=== PATIENT | female | born 1945 | race Caucasian/White ===

== ENCOUNTER → 2018-09-21 12:21 | Outpatient (CLI) | payer MEDICARE, OTHER ==
[2015-10-24 11:06] VITALS: BMI 29.3
[~2018-09-21 12:21] MED LIST: ALBUTEROL SULF8.5 GM INH; BAYER CHEWABLE81 MG PO; BETAPACE 80 MG80 MG PO; BUSPAR5 MG PO; COZAAR100 MG PO; GLUCOPHAGE1000 MG PO; HYDRALAZINE HCL50 MG PO; HYDROCODON-ACE1 EAC7 PO; HYTRIN5 MG PO; KLONOPIN0.5 MG PO; LASIX40 MG PO; LEVEMIR FL100 UNIT/1 SC; LEVEMIR IN100 UNITS/ SC; LUTERA1 TAB PO; MULTI-DAY VITAM1 TAB PO; MULTIPLE VITAMI1 TA1 PO; NEURONTIN 300300 MG PO; NORVASC5 MG PO; PLAVIX75 MG PO; PRAVACHOL40 MG PO; PROTONIX40 MG PO; TERAZOSIN HCL2 MG PO; ULTRAM50 MG PO; VITAMIN B-122500 MCG PO; VOLTAREN100 GM TOPICAL; ZANAFLEX4 MG PO; ZANTAC150 MG PO; ZOLOFT50 MG PO
--- NOTE | 2018-09-21 13:39 | NUR ---
CT WITHOUT CONTRAST ONLY BECAUSE PATIENT COULDN'T TOLERATE BEING ON HER STOMACH FOR MYELOGRAM INJECTION. MARY WITH DR. STEVENSON NOTIFIED AND SENT NEW ORDER FOR CT
== END | disposition home or self-care (01) ==
LOC: D.RAD 12:21
PROVIDERS: ATTEND Orthopaedic Surgery
DX: M54.16 Radiculopathy, lumbar region (principal)

== ENCOUNTER 2018-09-24 16:31 | Observation (INO) | payer MEDICARE, OTHER ==
[~2018-09-24] VITALS: Ht 157.5 cm; Wt 70.5 kg
[2018-09-24] VITALS (8 sets, daily range): BP systolic 167–211; BP diastolic 65–82; Ht 157.5 cm; Wt 70.5 kg
[~2018-09-24 16:31] MED LIST changes: -ALBUTEROL SULF8.5 GM INH; -BUSPAR5 MG PO; -HYDROCODON-ACE1 EAC7 PO; -HYTRIN5 MG PO; -LEVEMIR IN100 UNITS/ SC; -MULTI-DAY VITAM1 TAB PO; -NORVASC5 MG PO; -ULTRAM50 MG PO; -VOLTAREN100 GM TOPICAL; -ZANAFLEX4 MG PO
[2018-09-24] MEDS ORDERED: ULTRAM50 MG PO (16:49)
[2018-09-24] MEDS ORDERED: HYDROCODON-ACE1 EAC7 PO (16:50)
[2018-09-24] MEDS ORDERED: LEVEMIR IN100 UNITS/ SC (16:51)
[2018-09-24] MEDS ORDERED: HYTRIN5 MG PO (16:54)
[2018-09-24] MEDS ORDERED: NORVASC5 MG PO (16:55)
[2018-09-24] MEDS ORDERED: BUSPAR5 MG PO (16:55)
[2018-09-24] MEDS ORDERED: MULTI-DAY VITAM1 TAB PO (16:56)
[2018-09-24 17:34] LABS: BASOPHILS 0.2 % (0-2); EOSINOPHILS 1.1 % (0-7); HEMOGLOBIN 13.5 g/dL (12-16); IMMATURE GRANULOCYTES 0.2 % (0-5); LYMPHOCYTES 16.5 % (15-50); MCH 29.8 pg (26.0-34.0); MCHC 34.6 g/dL (31.0-37.0); MCV 86.1 fL (80.0-100.0); MEAN PLATELET VOLUME 10.5 fL (7.4-10.4); MONOCYTES 6.8 % (2-11); NEUTROPHILS 75.2 % (40-80); PLATELET COUNT 151 10x3/uL (130-400); RBC 4.53 10x6/uL (4.00-5.40); RDW 13.6 % (11.5-14.5); WBC 5.6 10x3/uL (4.8-10.8)
[2018-09-24 17:57] LABS: APTT 35.1 SECONDS (22.8-39.4); INR 1.05 (0.85-1.17); PROTIME 13.2 SECONDS (11.6-15.0)
[2018-09-24 18:29] LABS: ALBUMIN 3.5 g/dL (3.4-5.0); ALKALINE PHOSPHATASE 53 U/L (46-116); ALT (SGPT) 27 U/L (10-68); CALCIUM 8.7 mg/dL (8.5-10.1); CARBON DIOXIDE 24.2 mmol/L (21.0-32.0); CHLORIDE - SERUM 107 mmol/L (98-107); POTASSIUM - SERUM 3.8 mmol/L (3.5-5.1); PROTEIN - SERUM 6.9 g/dL (6.4-8.2); SODIUM 142 mmol/L (136-145); UREA NITROGEN 22 mg/dL (7-18); eGFR NON AFRICAN AMERICAN 57 mL/min (90-120)
[2018-09-24 18:40] LABS: CKMB 1.4 U/L (0.0-3.6); CREATINE KINASE 47 UL (21-215); MAGNESIUM - SERUM 1.9 mg/dL (1.8-2.4)
[2018-09-24 18:43] LABS: CALC OSMOLALITY 288 mosm/kg (275-300); GLUCOSE 144 mg/dL (74-106); TROPONIN-I < 0.017 ng/mL (0.000-0.060)
--- NOTE | 2018-09-24 22:18 | NUR ---
PT ARRIVED VIA W/C FROM ER WITH FAMILY AT BEDSIDE. NO DISTRESS NOTED.
[2018-09-24] MEDS ORDERED: ZANAFLEX4 MG PO (22:44)
[2018-09-24] MEDS ORDERED: VOLTAREN100 GM TOPICAL (22:45)
--- NOTE | 2018-09-25 00:45 | NUR ---
ADMISSION ASSESSMENT, HISTORY AND HOME MED LIST COMPLETED BY 2315 HRS. HAS C/O SEVERE LEG PAIN. PALPABLE PEDAL PULSES. ALERT AND OREINTED TO PERSON, PLACE AND TIME. IV TO RFA SL. LUNGS DIMINISHED IN BASES BILAT. REDDENED AREA NOTED UNER R BREAST AND R GROIN. PEDAL PULSES WEAK. SR PER CM HR 62. PT HAS PPM. SBP 176. PT AND FAMILY MEMBER STATED THAT IS MUCH IMPROVED FROM ER. SPOKE WITH DR DAVISON AT 2315 HRS. NEW ORDERS RECEIVED AND NOTED. NORCO 5/325 MG PO GIVNE AT 2325 HRS. PT CURRENTLY RESTING WITH EYES CLOSED. RESP EVEN AND REGULAR. SR UP X2, CALL LIGHT WITHIN REACH.
--- NOTE | 2018-09-25 02:27 | NUR ---
NEURONTIN AND ZANAFLEX PO GIVEN. PT STATES LEG PAIN IS DIMINISHED. SR UP X2, CALL LIGHT WITHIN REACH.
--- NOTE | 2018-09-25 04:26 | NUR ---
ASSISTED PT TO BR. PT VOIDED 350CC OF YELOW URINE. ASSISTED BACK TO BED. SR UP X2, CALL LIGHT WITHIN REACH.
[2018-09-25 05:38] VITALS: BP 152/54
--- NOTE | 2018-09-25 06:39 | NUR ---
VSS THIS AM. PT STATES NORCO HELPS CONTROL HER PAIN. NEEDS MET; WILL CONTINUE TO MONITOR.
[2018-09-25 08:45] VITALS: BP 168/60
[2018-09-25 08:51] VITALS: BP 168/60
[2018-09-25] MEDS ORDERED: ALBUTEROL SULF8.5 GM INH (09:23)
--- NOTE | 2018-09-25 09:23 | NUR ---
AM MEDS AND NORCO GIVEN FOR PAIN LEVEL OF 9/10. PT DENIES ANY OTHER NEEDS AT THIS TIME. CALL LIGHT IN REACH, FAMILY AT BEDSIDE, NAD NOTED, WILL CONTINUE TO MONITOR.
--- NOTE | 2018-09-25 10:20 | NUR ---
AM MEDS GIVEN AT THIS TIME. PT RATES PAIN LEVEL NOW 6/10. DENIES ANY NEEDS AT THIS TIME. CALL LIGHT IN REACH, FAMILY AT BEDSIDE, NAD NOTED,W ILL CONTINUE PLAN OF CARE.
[2018-09-25 12:07] VITALS: BP 158/62
[2018-09-25 16:59] VITALS: BP 152/60
--- NOTE | 2018-09-25 19:41 | NUR ---
INITIAL ROUNDS AND ASSESSMENT COMPLETED. PT RESTING IN BED. NO DISTRESS. MONITOR AND CPOC. CALL LIGHT IN REACH.
[2018-09-25 20:00] VITALS: BP 181/69
--- NOTE | 2018-09-25 20:46 | NUR ---
BEDTIME MEDS GIVEN. REQUESTED PAIN PILL FOR PAIN IN LEGS 01/19 GIVEN. ASSISTED UP TO BATHROOM WITH STAND BY ASSISTANCE TO VOID.
--- NOTE | 2018-09-25 20:56 | NUR ---
PT SOB AFTER WALKING TO BATHROOM. ENCOURAGED HER TO PLACE HER O2 @ 2L/NC ON FOR AT LEAST A SHORT PERIOD OF TIME. PT STATES SHE HASN'T BEEN WEARING IT BECAUSE IT CLOGS HER NOSE UP. WILL MONITOR.
--- NOTE | 2018-09-26 01:37 | NUR ---
PT AWAKE, WRITING WITH PAIN AND DISCOMFORT. TEARFUL. DISCUSSED MEDICATIONS AND PT IN AGREEMENT TO TRY THE IV MORPHINE WITH ZOFRAN TO SEE IF IT CAN PROVIDE HER WITH ANY RELIEF. ADMINISTERED IV MORPHINE 4MG AND IV ZOFRAN 4MG SIVP AT THIS TIME. WILL MONITOR RESPONSE.
[2018-09-26 04:00] VITALS: BP 160/61
--- NOTE | 2018-09-26 04:48 | NUR ---
PT TEARFUL, HURTING IN HER LEGS/BACK. ADJUSTED BED TO TAKE PRESSURE OFF HER SACRAL AREA AND PROVIDED PATIENT WITH NORCO AND ZANAFLEX FOR PAIN/SPASMS. MONITOR AND CPOC.
[2018-09-26 05:02] LABS: BASOPHILS 0.2 % (0-2); HEMATOCRIT 39.2 % (36.0-48.0); HEMOGLOBIN 13.1 g/dL (12-16); IMMATURE GRANULOCYTES 0.3 % (0-5); LYMPHOCYTES 15.6 % (15-50); MCH 29.5 pg (26.0-34.0); MCHC 33.4 g/dL (31.0-37.0); MEAN PLATELET VOLUME 11.2 fL (7.4-10.4); MONOCYTES 7.8 % (2-11); NEUTROPHILS 75.1 % (40-80); PLATELET COUNT 150 10x3/uL (130-400); RBC 4.44 10x6/uL (4.00-5.40); RDW 13.7 % (11.5-14.5); WBC 5.9 10x3/uL (4.8-10.8)
[2018-09-26 05:10] LABS: MCV 88.3 fL (80.0-100.0)
[2018-09-26 05:21] LABS: ANION GAP 9.6 mmol/L (8-16); CALCIUM 8.7 mg/dL (8.5-10.1); CREATININE - SERUM 0.9 mg/dL (0.6-1.3); MAGNESIUM - SERUM 2.3 mg/dL (1.8-2.4); POTASSIUM - SERUM 4.3 mmol/L (3.5-5.1)
[2018-09-26 05:25] LABS: CARBON DIOXIDE 30.7 mmol/L (21.0-32.0)
--- NOTE | 2018-09-26 07:20 | NUR ---
ASSESSMENT DONE. DENIES NEEDS.
[2018-09-26 08:00] VITALS: BP 135/43
[2018-09-26 12:12] VITALS: BP 198/55
--- NOTE | 2018-09-26 15:42 | NUR ---
I have reviewed this patient and I concur with the Shift Assessment completed by the Licensed Practical Nurse today this shift.
[2018-09-26 16:24] VITALS: BP 112/82
--- NOTE | 2018-09-26 16:41 | NUR ---
WITHOUT CHANGES OR DISTRESS NOTED AT THIS TIME. DENIES NEEDS.
--- NOTE | 2018-09-26 19:10 | NUR ---
DR STEVENSON AT BED SIDE TO SEE PT.
[2018-09-26 20:00] VITALS: BP 153/68
--- NOTE | 2018-09-26 20:48 | NUR ---
HS MEDS GIVEN WITH FRESH ICE WATER, BS COVERED PER S/S. UP WITH ASSIST TO BR.
--- NOTE | 2018-09-27 01:12 | NUR ---
UP WITH ASSIST TO BR.
[2018-09-27 04:00] VITALS: BP 187/75
--- NOTE | 2018-09-27 04:18 | NUR ---
I have reviewed this patient and I concur with the Shift Assessment completed by the Licensed Practical Nurse today this shift.
[2018-09-27 06:31] LABS: BASOPHILS 0 % (0-2); EOSINOPHILS 0 % (0-7); HEMATOCRIT 40.6 % (36.0-48.0); HEMOGLOBIN 13.7 g/dL (12-16); IMMATURE GRANULOCYTES 0.2 % (0-5); LYMPHOCYTES 3.2 % (15-50); MCH 29.3 pg (26.0-34.0); MCHC 33.7 g/dL (31.0-37.0); MCV 86.9 fL (80.0-100.0); MEAN PLATELET VOLUME 10.4 fL (7.4-10.4); MONOCYTES 1.3 % (2-11); NEUTROPHILS 95.3 % (40-80); PLATELET COUNT 150 10x3/uL (130-400); RBC 4.67 10x6/uL (4.00-5.40); RDW 13.8 % (11.5-14.5)
[2018-09-27 06:34] LABS: WBC 14.9 10x3/uL (4.8-10.8)
[2018-09-27 06:53] LABS: ANION GAP 11.6 mmol/L (8-16); CALCIUM 9.2 mg/dL (8.5-10.1); CARBON DIOXIDE 29.9 mmol/L (21.0-32.0); MAGNESIUM - SERUM 2.5 mg/dL (1.8-2.4); POTASSIUM - SERUM 4.5 mmol/L (3.5-5.1)
--- NOTE | 2018-09-27 07:20 | NUR ---
ASSESSMENT DONE. DENIES NEEDS
[2018-09-27 08:19] VITALS: BP 145/59
[2018-09-27 11:26] LABS: APPEARANCE CLOUDY (CLEAR); BILIRUBIN NEGATIVE (NEGATIVE); COLOR YELLOW (YELLOW); GLUCOSE 250 mg/dL (NEGATIVE); KETONE NEGATIVE (NEGATIVE); NITRITE NEGATIVE (NEGATIVE); PROTEIN 2+ mg/dL (NEGATIVE); UROBILINOGEN NORMAL (NORMAL); WHITE CELLS - URINE OCC /hpf (0-5)
[2018-09-27 11:27] LABS: BACTERIA MANY /hpf (NONE SEEN); EPITHELIAL CELLS 0-5 /hpf (0-5); MUCUS <1+ /lpf (NONE SEEN); RED CELLS - URINE OCC /hpf (0-5)
--- NOTE | 2018-09-27 12:14 | NUR ---
Rehab Note- Acute Inpatient REhab prescreen order received. The patient continues to have an acute work up done at this time- this will need to be completed prior to an inpatient acute rehab stay. Will continue to follow at this time. Thank you for this referral! Brittanie Torres RN Clinical Liaison, [facility]
[2018-09-27 12:28] VITALS: BP 156/68
--- NOTE | 2018-09-27 14:57 | NUR ---
I have reviewed this patient and I concur with the Shift Assessment completed by the Licensed Practical Nurse today this shift.
[2018-09-27 16:14] VITALS: BP 149/54
--- NOTE | 2018-09-27 17:19 | NUR ---
WITHOUT CHANGES OR DISTRESS NOTED AT THIS TIME. DENIES NEEDS.
--- NOTE | 2018-09-27 19:29 | NUR ---
ASSESSMENT COMPLETE. PT A&O. RESPERATIONS EVEN ON RA. IV TO LEFT HAND SL. BRUISING NOTED TO IV INSERTION SITE, BUT CATHETER FLUSHES WITH OUT DIFFICULTY. PT CURRENTLY DENIES PAIN OR NEEDS, BED LOW, CL IN REACH.
[2018-09-27 20:00] VITALS: BP 142/59
--- NOTE | 2018-09-28 02:26 | NUR ---
RESTING WITH EYES CLOSED, RESPERATIONS EVEN, NO S/S DISTRESS NOTED.
--- NOTE | 2018-09-28 02:28 | NUR ---
I have reviewed this patient and I concur with the Shift Assessment completed by the Licensed Practical Nurse today this shift.
[2018-09-28 04:00] VITALS: BP 160/70
[2018-09-28 04:39] LABS: BASOPHILS 0 % (0-2); EOSINOPHILS 0 % (0-7); HEMATOCRIT 37.8 % (36.0-48.0); HEMOGLOBIN 12.9 g/dL (12-16); IMMATURE GRANULOCYTES 0.2 % (0-5); LYMPHOCYTES 4.5 % (15-50); MCH 29.9 pg (26.0-34.0); MCHC 34.1 g/dL (31.0-37.0); MCV 87.5 fL (80.0-100.0); MEAN PLATELET VOLUME 10.7 fL (7.4-10.4); MONOCYTES 5.6 % (2-11); NEUTROPHILS 89.7 % (40-80); PLATELET COUNT 154 10x3/uL (130-400); RBC 4.32 10x6/uL (4.00-5.40); RDW 13.8 % (11.5-14.5)
[2018-09-28 05:08] LABS: ANION GAP 8.5 mmol/L (8-16); CALCIUM 8.6 mg/dL (8.5-10.1); CARBON DIOXIDE 31.8 mmol/L (21.0-32.0); CREATININE - SERUM 0.9 mg/dL (0.6-1.3); MAGNESIUM - SERUM 2.4 mg/dL (1.8-2.4); POTASSIUM - SERUM 4.3 mmol/L (3.5-5.1)
--- NOTE | 2018-09-28 07:40 | NUR ---
AM ROUNDS PT RESTING COMFORTABLY IN BED, WITH EYES CLOSED, REPS EVEN AND NONLABORED ON RA. LT HAND IV SL. MONITOR SHOWING SR WITH RATE OF 85. CALL LIGHT IN REACH, BEDSIDE RAILS X2, NAD NOTED, WILL CONTINUE PLAN OF CARE.
[2018-09-28 08:39] VITALS: BP 136/74
--- NOTE | 2018-09-28 09:11 | NUR ---
PROCEDURE CANCELLED PER DR. MOLINA. PATIENT ON PLAVIX & ASPIRIN.
--- NOTE | 2018-09-28 09:14 | NUR ---
DR. ESTEBAN & ANESTHESIA NOTIFIED OF MYELOGRAM CANCELLATION. PATIENT ON PLAVIX & ASPIRIN
--- NOTE | 2018-09-28 09:18 | NUR ---
AM MEDS GIVEN AT THIS TIME. ALSO HELPED PT TO BATHROOM AND BACK TO BED, FAMILY AT BEDSIDE, CALL LIGHT IN REACH,NAD NOTED, WILL CONTINUE TO MONITOR.
--- NOTE | 2018-09-28 11:01 | NUR ---
1MG OF DILAUDID FOR PAIN LEVEL OF 7/10, PT DENIES ANY OTHER NEEDS AT THIS TIME. CALL LIGHT IN REACH, NAD NOTED,W ILL CONTINUE TO MONITOR.
--- NOTE | 2018-09-28 11:19 | CN ---
PATIENT NAME:JOHNATHAN MUÑOZ MEDICAL RECORD: [id number] : 41 LOCATION:D.M2 D.2122 ADMIT DATE: 09/24/18 ACCOUNT: [id number] CONSULTING PHYSICIAN: ERIC DAVISON MD REFERRING PHYSICIAN: HANY NOLNE MD DATE OF CONSULTATION: 09/25/2018 DIAGNOSES: 1. Angina. 2. Coronary artery disease. 3. Previous PTCA and stent 5-6 years ago. 4. Hypertension. 5. Hyperlipidemia. 6. Sick sinus syndrome. 7. Status post pacemaker. 8. Paroxysmal atrial fibrillation. 9. Shortness of breath, dyspnea on exertion. 10. Abnormal ECG. HISTORY OF PRESENT ILLNESS: Ms. Muñoz presents mostly with leg pain and back pain. She as well as has had some chest pain. She has a history of sciatic nerve problem, for which she is acutely seen Dr. Rooney in the recent past. They attempted to do a CT scan. However, she could not lie flat for the CT scan. She has severe leg pain going down the right leg from lower back spinal stenosis. He is deemed her a nonoperative candidate due to her overall poor health. She has a history of coronary artery disease, PTCA and stent approximately 5-6 years ago. Her EKG is abnormal and suggests inferior ischemia. Her troponin is normal. She has not had any further chest pain. She is markedly hypertensive most likely due to the back pain. She is on Norvasc for the blood pressure and no other medications. Her heart rate is in 60s. PHYSICAL EXAMINATION: GENERAL APPEARANCE: Well-nourished, well-developed, appears stated age. Level of distress, comfortable. PSYCHIATRIC: Mental status, alert, normal affect. Orientation, oriented to time, place and person. EYES: Lids and conjunctiva, noninjected. No discharge, no pallor. ENT: Lips, teeth, gums, normal dentition. Oropharynx, no cyanosis, no pallor. NECK: Carotid arteries, bilateral normal upstroke, no bruits, no thrills. JUGULAR VEINS: No jugular venous pressure or distention. CERVICAL LYMPH NODES: Nontender, nonenlarged. THYROID: Not enlarged. Nontender. No nodules. LUNGS: Respiratory effort, unlabored. CHEST: Normal curvature. No thoracic deformity. No chest wall tenderness. Percussion, resonant. Auscultation, clear. No wheezes, no rales, no rhonchi. CARDIOVASCULAR: Precordial exam, nondisplaced. No heaves or pericardial thrills. Rate and rhythm, regular. Heart sounds, normal S1, normal S2. No S3, no gallop, no rub. Systolic murmur, not heard. Diastolic murmur, not heard. EXTREMITIES: No cyanosis, no edema. Peripheral pulses, full and equal in all extremities, except as noted. No bruits appreciated. ABDOMEN: Soft, nondistended. Normal aorta. No bruit. Nontender. No masses. Liver, nontender, no hepatomegaly. Spleen, nontender, no splenomegaly. MUSCULOSKELETAL: No joint tenderness. No joint swelling. No erythema. NEUROLOGICAL: Normal gait, normal strength, normal tone. SKIN: Warm and dry. CONSULT REPORT [id number] JOHNATHAN MUÑOZ OVERALL IMPRESSION: Chest pain. Most likely, she does have recurrent hemodynamically significant coronary artery disease. She cannot lie flat for a CT scan. She most likely cannot lie flat for an angiogram, but at this time would only treat her medically due to her marked hypertension. I think if we get the hypertension under control, the chest pain will be under control as well. We will continue her Norvasc, add lisinopril for this. She does not need a beta-sydnee due to heart rate being in the 60s. If the lisinopril and Norvasc combination does not lower the blood pressure, would add Cardura as well. At this time, it is only medical management of her coronary artery disease and angina. TRANSINT:[id number] Voice Confirmation ID: [id number] DOCUMENT ID: [id number] ERIC DAVISON MD at 1119 CC: [id number] DICTATION DATE: 09/25/18 0940 SANDING MACHINE TENDER AUTOMATIC: 09/25/18 1408 ADM IN [place] [id number] [place] [address]
--- NOTE | 2018-09-28 11:19 | EC ---
PATIENT:JOHNATHAN MUÑOZ DATE OF SERVICE: 09/24/18 SEX: F MEDICAL RECORD: [id number] DATE OF : 41 LOCATION:D. D.212 AGE OF PATIENT: 73 ADMISSION DATE: 09/24/18 REFERRING PHYSICIAN: INTERPRETING PHYSICIAN: ERIC MOSQUERA MD ECHOCARDIOGRAM REPORT ECHO CHARGES 4 ECHO COMPLETE Date: 09/25/18 CLINICAL DIAGNOSIS: SOB ECHOCARDIOGRAPHIC MEASUREMENTS (adult normal given) AC root (d.<3.7cm) 2.7 cm LV Septum d (<1.2 cm> 1.1 cm Valve Excursion 1.4 cm LV Septum (systole) 1.3 cm Left Atria (s.<4.0cm> 2.6 cm LVPW d(<1.2cm) 1.0 cm RV (d.<2.3cm) 2.6 cm LVPW (sytole) 1.2 cm LV diastole(<5.6CM) 4.5 cm MV E-F(>70mm/sec) cm LV systole 3.8 cm LVOT Diameter 1.6 cm MV exc.(>10mm) cm Est.ejection fraction (50-75%) % DOPPLER: LVIT cm/sec A 171 cm/sec E 86 cm/sec LA cm/sec RVSP 16.5 mmHg LVOT cm/sec AOP1/2T m/s Asc. Ao cm/sec RVOT 81 cm/sec RA cm/sec PA 87 cm/sec AV Gradient Peak mmHg AV Mean mmHg AV Area cm MV Gradient Peak 13.0 mmHg MV Mean 4.6 mmHg MV Area cm COMMENTS: Garment Looper: Romie ROXANNE CURT Clinical Fellow: 1 Dr. Mosquear TAPE# PACS Pericardial Effusion N DATE OF SERVICE: FINDINGS: 1. Left ventricular chamber size is within normal limits. Left ventricular systolic function is normal. Overall ejection fraction estimated at 55%. 2. Left atrium, right atrium, and right ventricle chamber sizes are within normal limits. 3. Valvular structures have normal structure and motion. 4. Doppler interrogation reveals mild mitral regurgitation, mild tricuspid regurgitation, no other valvular insufficiency or stenosis. ECHOCARDIOGRAM REPORT [id number] JOHNATHAN MUÑOZ 5. No evidence of pericardial effusion or left ventricular thrombus. TRANSINT:[id number] Voice Confirmation ID: [id number] DOCUMENT ID: [id number] ERIC MOSQUERA MD at 1119 CC: [id number] DICTATION DATE: 09/25/18 1251 ANDROID ARCHITECT: 09/25/18 1434 ADM IN [place] [address] [place] [id number]
--- NOTE | 2018-09-28 11:20 | MORECARE ---
CASE MANAGEMENT DISCHARGE SUMMARY PATIENT: JOHNATHAN MUÑOZ UNIT: [id number] ADM DATE: 09/24/18 AGE: 73 : 43 SEX: F ROOM/BED: D.2121 AUTHOR: KENDRA BOURGEOIS PHYSICIAN: REFERRING PHYSICIAN: HANY NOLEN MD DATE OF SERVICE: 09/28/18 Discharge Plan Patient Name: JOHNATHAN MUÑOZ Facility: [facility]:[place] : 1945 Planned Disposition: Home Anticipated Discharge Date: Discharge Date: Expected LOS: Initial Reviewer: [email or web address] Initial Review Date: 09/28/2018 Generated: 09/28/18 12:20 pm Coverage Notice Reviewer: [id number] Narcisa West Notice Issued Date-Time: 09/25/2018 15:00 Notice Type: Medicare Outpatient Observation Notice Notice Delivered To: Patient Relationship to Patient: Self Tour Conductor Name: Delivery Method: HAND - Hand Delivered Dee Days: Prior Verbal Notification: Recipient Understood Notice: Yes Recipient Signature: Yes Med Rec Note Co-signed by Attending: Coverage Notice Comment: Reviewer: [id number] - Dago Lee Notice Issued Date-Time: 09/28/2018 9:50 Notice Type: Patient Choice Letter Notice Delivered To: Patient Relationship to Patient: Tour Conductor Name: Delivery Method: HAND - Hand Delivered Dee Days: Prior Verbal Notification: Recipient Understood Notice: Yes Recipient Signature: Yes Med Rec Note Co-signed by Attending: Coverage Notice Comment: [facility] Patient Name: JOHNATHAN MUÑOZ Page [phone] at 1120 All edits/amendments must be made on the electronic document DICTATION DATE: 09/28/18 1120 ACID TENDER: REAGAN 09/28/18 1120 RPT#: [id number] NC DATE: STATUS: ADM IN [place] [id number] [place] [address] END OF REPORT
--- NOTE | 2018-09-28 11:29 | MORECARE ---
CASE MANAGEMENT DISCHARGE SUMMARY PATIENT: JOHNATHAN MUÑOZ UNIT: [id number] ADM DATE: 09/24/18 AGE: 73 : 43 SEX: F ROOM/BED: D.2122 AUTHOR: CHRISTELLEDOC PHYSICIAN: REFERRING PHYSICIAN: HANY NOLEN MD DATE OF SERVICE: 09/28/18 Discharge Plan Patient Name: JOHNATHAN MUÑOZ Facility: [facility]:[place] : 1945 Planned Disposition: Home Anticipated Discharge Date: Discharge Date: Expected LOS: Initial Reviewer: [email or web address] Initial Review Date: 09/28/2018 Generated: 09/28/18 12:29 pm DCPIA - Discharge Planning Initial Assessment Updated by VIV: Dago Lee on 09/28/18 11:26 am * Is the patient Alert and Oriented? Yes * How many steps to enter\exit or inside your home? NONE * PCP DR. KEATING * Pharmacy [facility] * Preadmission Environment Home Alone * ADLs Independent * Equipment Nebulizer Rolling Walker Walker * Other Equipment WALKER WITH WHEELS, SEAT AND BRAKES NO MEDICAL EQUIPMENT PROVIDER PREFERENCE * List name and contact numbers for known caregivers / representatives who currently or will assist patient after discharge: JAS ALVARADO, DTR, DIANNA BELTRAN, DTR, * Verbal permission to speak to the caregivers and representatives has been obtained from the patient. Yes * Community resources currently utilized Home Health * Please name any agencies selected above. [facility] * Additional services required to return to the preadmission environment? No * Can the patient safely return to the preadmission environment? Yes * Has this patient been hospitalized within the prior 30 days at any hospital? No Coverage Notice Reviewer: [email or web address] Narcisa West Notice Issued Date-Time: 09/25/2018 15:00 Notice Type: Medicare Outpatient Observation Notice Notice Delivered To: Patient Relationship to Patient: Self Car Dispatcher Name: Delivery Method: HAND - Hand Delivered Dee Days: Prior Verbal Notification: Recipient Understood Notice: Yes Recipient Signature: Yes Med Rec Note Co-signed by Attending: Coverage Notice Comment: Reviewer: [email or web address] Narcisa Lee Notice Issued Date-Time: 09/28/2018 9:50 Notice Type: Patient Choice Letter Notice Delivered To: Patient Relationship to Patient: Car Dispatcher Name: Delivery Method: HAND - Hand Delivered Dee Days: Prior Verbal Notification: Recipient Understood Notice: Yes Recipient Signature: Yes Med Rec Note Co-signed by Attending: Coverage Notice Comment: [facility] Last DP export: 09/28/18 10:20 a Patient Name: JOHNATHAN MUÑOZ Page [phone] at 1129 All edits/amendments must be made on the electronic document DICTATION DATE: 09/28/18 112 COUNSELING CENTER DIRECTOR: REAGAN 09/28/18 1128 RPT#: [id number] DC DATE: STATUS: ADM IN [facility] [address] [place] [address] END OF REPORT
--- NOTE | 2018-09-28 11:37 | MORECARE ---
CASE MANAGEMENT DISCHARGE SUMMARY PATIENT: JOHNATHAN MUÑOZ UNIT: [id number] ADM DATE: 09/24/18 AGE: 73 : 43 SEX: F ROOM/BED: D.3234 AUTHOR: CHRISTELLE,DOC PHYSICIAN: REFERRING PHYSICIAN: HANY NOLEN MD DATE OF SERVICE: 09/28/18 Discharge Plan Patient Name: JOHNATHAN MUÑOZ Facility: [facility]:[place] : 1945 Planned Disposition: Home Anticipated Discharge Date: Discharge Date: Expected LOS: Initial Reviewer: [email or web address] Initial Review Date: 09/28/2018 Generated: 09/28/18 12:37 pm Comments DCP- Discharge Planning Updated by [id number]: Dago Lee on 09/28/18 10:[address] Patient Name: JOHNATHAN MUÑOZ Admission Status: ER Accout number: [id number] Admission Date: 09-24-2018 : 1945 Admission Diagnosis: Attending: TAMANNA, Current LOS: 4 Anticipated DC Date: Planned Disposition: Home Primary Insurance: MEDICARE A & B Discharge Planning Comments: CM RECEIVED ORDER FOR INPATIENT REHAB PRESCREENING. CM MET WITH PT AND DAUGHTER, JAS, IN ROOM TO DISCUSS DISCHARGE PLANNING AND NEEDS. JOHNATHAN MUÑOZ provided verbal consent to discuss current and ongoing needs with/in the presence of: ALL OF HER DAUGHTERS. PT REPORTS LIVING AT HOME INDEPENDENTLY AND ALONE, PT HAS HOME HEALTH WITH [facility] THAT HAS JUST RECENTLY STARTED. PT HAS ROLLING WALKER WITH WHEELS SEAT AND BRAKES WITH NO MEDICAL EQUIPMENT PROVIDER PREFERENCE. PT HAS NO OTHER OUTSIDE SERVICES ASSISTING IN THE HOME. CM DISCUSSED AVAILABILITY OF HOME HEALTH, REHAB SERVICES AND MEDICAL EQUIPMENT. PT AND DAUGHTER REPORT THAT PT IS NOT ABLE TO HAVE HER CT/MILOGRAM UNTIL WEDNESDAY OF NEXT WEEK PT WAS ON PLAVIX AND ASPIRIN. THE DOCTOR TOLD THEM LAST NIGHT THAT THE PLAN IS FOR PT TO GO TO REHAB DOWNSTAIRS UNTIL WEDNESDAY, COME BACK FOR THE CT/MILOGRAM AND KHYPOLASTY AND THEN GO BACK TO REHAB DOWNSTAIRS. CM EXPLAINED THAT THE KYPHOPLASTY IS AN OUTPATIENT ONLY PROCEDURE; CM EXPLAINED THAT CM DOES NOT THINK THAT REHAB WILL CONSIDER TAKING PT UNTIL 24 HOURS AFTER PROCEDURES. FAMILY DISCUSSED GROUP HOME PLACEMENT UNTIL PROCEDURE, CM EXPLAINED THAT PT IS IN OBSERVATION BED, NOT MEETING CRITERIA FOR INPATIENT STAY IN HOSPITAL; MEDICARE REQUIRES THREE MIDNIGHTS IN INPATIENT HOSPITAL BED FOR MEDICARE TO COVER REHAB SERVICES. PT HAS NOT BEEN ADMITTED INPATIENT IN THE LAST 30 DAYS. FAMILY WANTS TO MEET WITH PT AT NOON TODAY. CM PROVIDED CM CONTACT INFORMATION AND OFFICE SERVICES ASSISTANT CONTACT NUMBER. PT SIGNED CONSENT FORM FOR [facility]. CM SPOKE TO VICENTE OF INPATIENT REHAB, INPATIENT REHAB WILL NOT CONSIDER PATIENT UNTIL 24 HOURS AFTER HER PROCEDURE IS COMPLETED. MEDICARE WILL NOT COVER GROUP HOME FACILITY REHAB PT IS IN OBSERVATION STATUS. CM TO MEET WITH FAMILY REGARDING FURTHER DISCHARGE PLANNING AND NEEDS. PT DOES HAVE HOME HEALTH WITH [facility]. Exhaust Emissions Inspector: Dago Lee DCPIA - Discharge Planning Initial Assessment Updated by [id number]: Dago Lee on 09/28/18 11:26 am * Is the patient Alert and Oriented? Yes * How many steps to enter\exit or inside your home? NONE * PCP DR. KEATING * Pharmacy [facility] * Preadmission Environment Home Alone * ADLs Independent * Equipment Nebulizer Rolling Walker Walker * Other Equipment WALKER WITH WHEELS, SEAT AND BRAKES NO MEDICAL EQUIPMENT PROVIDER PREFERENCE * List name and contact numbers for known caregivers / representatives who currently or will assist patient after discharge: JAS ALVARADO, DTR, DIANNA BELTRAN, DTR, * Verbal permission to speak to the caregivers and representatives has been obtained from the patient. Yes * Community resources currently utilized Home Health * Please name any agencies selected above. [facility] * Additional services required to return to the preadmission environment? No * Can the patient safely return to the preadmission environment? Yes * Has this patient been hospitalized within the prior 30 days at any hospital? No Coverage Notice Reviewer: [id number] Narcisa West Notice Issued Date-Time: 09/25/2018 15:00 Notice Type: Medicare Outpatient Observation Notice Notice Delivered To: Patient Relationship to Patient: Self Python Consultant Name: Delivery Method: HAND - Hand Delivered Dee Days: Prior Verbal Notification: Recipient Understood Notice: Yes Recipient Signature: Yes Med Rec Note Co-signed by Attending: Coverage Notice Comment: Reviewer: [id number] - Dago Lee Notice Issued Date-Time: 09/28/2018 9:50 Notice Type: Patient Choice Letter Notice Delivered To: Patient Relationship to Patient: Python Consultant Name: Delivery Method: HAND - Hand Delivered Dee Days: Prior Verbal Notification: Recipient Understood Notice: Yes Recipient Signature: Yes Med Rec Note Co-signed by Attending: Coverage Notice Comment: [facility] Last DP export: 09/28/18 10:29 a Patient Name: JOHNATHAN MUÑOZ Page [phone] at 1137 All edits/amendments must be made on the electronic document DICTATION DATE: 09/28/18 1136 HAIRSPRING ASSEMBLER: REAGAN 09/28/18 1136 RPT#: [id number] DC DATE: STATUS: ADM IN [facility] [address] [place] [address] END OF REPORT
[2018-09-28 11:40] VITALS: BP 181/65
--- NOTE | 2018-09-28 12:04 | NUR ---
BLOOD SUGAR OF 266, 6UNITS OF HUMALOG PER S/S. ALSO GAVE DECADRON ORDERED. LUCIANO Garcia, EDGING CATCHER AT BEDSIDE TALKING WITH PT AND FAMILY. CALL LIGHT IN REACH, BEDSIDE RAILS X2, NAD NOTED, WILL CONTINUE TO MONITOR.
--- NOTE | 2018-09-28 13:33 | NUR ---
CALLED DR. ESTEBAN AND WENT TO VOICEMAIL, UNABLE TO LEAVE VOIC[facility]AIL DUE TO VOICEMAIL, BEING FULL. WILL TRY AGAIN LATER.
--- NOTE | 2018-09-28 15:12 | NUR ---
TRIED CALLING DR. ESTEBAN AGAIN AND IT WENT STRAIGHT TO VOICEMAIL. WAS NOT ABLE TO LEAVE VOICEMAIL DUE TO VOICEMAIL BEING FULL.
--- NOTE | 2018-09-28 16:17 | NUR ---
BLOOD SUGAR OF 371, 10UNITS OF HUMALOG GIVEN PER S/S. ALSO PROVIDED VERBAL AND WRITTEN DISCHARGE TEACHING TO PT, WHO VERBALIZED UNDERSTADING REGARDING TEACHING. PT ASKING IF SHE IS GETTING A PRESCRIPTION FOR DILAUDID FOR PAIN. MSG SENT TO [facility], WAITING ON REPONSE. PT WILL NOTIFY THIS NURSE WHEN READY FOR WHEELCHAIR.
--- NOTE | 2018-09-28 16:22 | MORECARE ---
CASE MANAGEMENT DISCHARGE SUMMARY PATIENT: JOHNATHAN MUÑOZ UNIT: [id number] ADM DATE: 09/24/18 AGE: 73 : 41 SEX: F ROOM/BED: D.1593 AUTHOR: CHRISTELLE,DOC PHYSICIAN: REFERRING PHYSICIAN: HANY NOLEN MD DATE OF SERVICE: 09/28/18 Discharge Plan Patient Name: JOHNATHAN MUÑOZ Facility: [facility]:[place] : 1945 Planned Disposition: Home with Home Health Anticipated Discharge Date: 09/28/18 Discharge Date: Expected LOS: 4 Initial Reviewer: [email or web address] Initial Review Date: 09/28/2018 Generated: 09/28/18 5:21 pm Comments DCP- Discharge Planning Updated by [email or web address]: Dago Lee on 09/28/18 3:[address] Patient Name: JOHNATHAN MUÑOZ Encounter No: [id number] : 1945 Primary Insurance: MEDICARE A & B Anticipated DC Date: 09-28-2018 Planned Disposition: Home with Home Health External Planned Provider: [facility] DCP follow-up note: CM RECEIVED DISCHARGE ORDER, FAXED DISCHARGE INFORMATION TO [facility] AT [phone]. CM CALLED AND NOTIFIED [facility] AT [facility], , PT PLACED ON SCHEDULE FOR HOME HEALTH RESUMPTION. Dago Lee. CASE MANAGEMENT DCP- Discharge Planning Updated by [email or web address]: Dago Lee on 09/28/18 10:[address] Patient Name: JOHNATHAN MUÑOZ Admission Status: ER Accout number: [id number] Admission Date: 09-24-2018 : 1945 Admission Diagnosis: Attending: TAMANNA, Current LOS: 4 Anticipated DC Date: Planned Disposition: Home Primary Insurance: MEDICARE A & B Discharge Planning Comments: CM RECEIVED ORDER FOR INPATIENT REHAB PRESCREENING. CM MET WITH PT AND DAUGHTER, JAS, IN ROOM TO DISCUSS DISCHARGE PLANNING AND NEEDS. JOHNATHAN MUÑOZ provided verbal consent to discuss current and ongoing needs with/in the presence of: ALL OF HER DAUGHTERS. PT REPORTS LIVING AT HOME INDEPENDENTLY AND ALONE, PT HAS HOME HEALTH WITH [facility] THAT HAS JUST RECENTLY STARTED. PT HAS ROLLING WALKER WITH WHEELS SEAT AND BRAKES WITH NO MEDICAL EQUIPMENT PROVIDER PREFERENCE. PT HAS NO OTHER OUTSIDE SERVICES ASSISTING IN THE HOME. CM DISCUSSED AVAILABILITY OF HOME HEALTH, REHAB SERVICES AND MEDICAL EQUIPMENT. PT AND DAUGHTER REPORT THAT PT IS NOT ABLE TO HAVE HER CT/MILOGRAM UNTIL WEDNESDAY OF NEXT WEEK PT WAS ON PLAVIX AND ASPIRIN. THE DOCTOR TOLD THEM LAST NIGHT THAT THE PLAN IS FOR PT TO GO TO REHAB DOWNSTAIRS UNTIL WEDNESDAY, COME BACK FOR THE CT/MILOGRAM AND KHYPOLASTY AND THEN GO BACK TO REHAB DOWNSTAIRS. CM EXPLAINED THAT THE KYPHOPLASTY IS AN OUTPATIENT ONLY PROCEDURE; CM EXPLAINED THAT CM DOES NOT THINK THAT REHAB WILL CONSIDER TAKING PT UNTIL 24 HOURS AFTER PROCEDURES. FAMILY DISCUSSED LONG-TERM PLACEMENT UNTIL PROCEDURE, CM EXPLAINED THAT PT IS IN OBSERVATION BED, NOT MEETING CRITERIA FOR INPATIENT STAY IN HOSPITAL; MEDICARE REQUIRES THREE MIDNIGHTS IN INPATIENT HOSPITAL BED FOR MEDICARE TO COVER REHAB SERVICES. PT HAS NOT BEEN ADMITTED INPATIENT IN THE LAST 30 DAYS. FAMILY WANTS TO MEET WITH PT AT NOON TODAY. 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 PT SIGNED CONSENT FORM FOR [facility]. CM SPOKE TO VICENTE OF INPATIENT REHAB, INPATIENT REHAB WILL NOT CONSIDER PATIENT UNTIL 24 HOURS AFTER HER PROCEDURE IS COMPLETED. MEDICARE WILL NOT COVER LONG-TERM FACILITY REHAB PT IS IN OBSERVATION STATUS. CM TO MEET WITH FAMILY REGARDING FURTHER DISCHARGE PLANNING AND NEEDS. PT DOES HAVE HOME HEALTH WITH [facility]. Commission Clerk: Dago Lee DCPIA - Discharge Planning Initial Assessment Updated by [email or web address]: Dago Lee on 09/28/18 11:26 am * Is the patient Alert and Oriented? Yes * How many steps to enter\exit or inside your home? NONE * PCP DR. KEATING * Pharmacy [facility] * Preadmission Environment Home Alone * ADLs Independent * Equipment Nebulizer Rolling Walker Walker * Other Equipment WALKER WITH WHEELS, SEAT AND BRAKES NO MEDICAL EQUIPMENT PROVIDER PREFERENCE * List name and contact numbers for known caregivers / representatives who currently or will assist patient after discharge: JAS ALVARADO, DTR, DIANNA BELTRAN, DTR, * Verbal permission to speak to the caregivers and representatives has been obtained from the patient. Yes * Community resources currently utilized Home Health * Please name any agencies selected above. [facility] * Additional services required to return to the preadmission environment? No * Can the patient safely return to the preadmission environment? Yes * Has this patient been hospitalized within the prior 30 days at any hospital? 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 Name: Delivery Method: HAND - Hand Delivered Dee Days: Prior Verbal Notification: Recipient Understood Notice: Yes Recipient Signature: Yes Med Rec Note Co-signed by Attending: Coverage Notice Comment: Reviewer: [id number] - Dago Lee Notice Issued Date-Time: 09/28/2018 9:50 Notice Type: Patient Choice Letter Notice Delivered To: Patient Relationship to Patient: Floor Press Operator Name: Delivery Method: HAND - Hand Delivered Dee Days: Prior Verbal Notification: Recipient Understood Notice: Yes Recipient Signature: Yes Med Rec Note Co-signed by Attending: Coverage Notice Comment: [facility] Last DP export: 09/28/18 10:37 a Patient Name: JOHNATHAN MUÑOZ Page [id number] at 1622 All edits/amendments must be made on the electronic document DICTATION DATE: 09/28/181620 OPTOMETRIC AIDE: REAGAN 09/28/18 162 RPT#: [id number] DC DATE: STATUS: ADM IN [facility] [address] [place] [address] END OF REPORT
--- NOTE | 2018-09-28 16:22 | NUR ---
PROVIDED VERBAL AND WRITTEN DISCHARGE TEACHING TO PT WHO VERBALIZED UNDERSTANDING REGARDING TEACHING. PT LEFT UNIT VIA WHEELCHAIR WITH ALL BELONGINGS, NAD NOTED.
--- NOTE | 2018-09-28 17:12 | NUR ---
PT TO BE DISCHARGED, DISCONTINUED IV IN LEFT HAND. AKSED FOR WHEELCHAIR, WHEELCHAIR PROVIDED.
--- NOTE | 2018-09-28 18:05 | NUR ---
OT NOTE: PT COMPLETED BED MOB WITH SBA. PT COMPLETED SUPINE TO SIT WITH SBA. PT COMPLETED ADL MOB WITH SBA. PT COMPLETED TOILETING TASKS WITH SBA. THANK YOU, CHIVO CALDWELL
== END 2018-09-28 17:17 | disposition home health service (06) ==
LOC: D.ER 16:31 → D.M2 20:19 → OBSVTIME 20:19 → D.M2 09-28 17:17
PROVIDERS: Emergency Medicine; Internal Medicine Nephrology; ADMIT Family Medicine; ATTEND Family Medicine
DX: I25.119 Atherosclerotic heart disease of native coronary artery with unspecified angina pectoris (principal); I10 Essential (primary) hypertension; E78.5 Hyperlipidemia, unspecified; Z95.0 Presence of cardiac pacemaker; I48.0 Paroxysmal atrial fibrillation; R94.30 Abnormal result of cardiovascular function study, unspecified; M48.54XA Collapsed vertebra, not elsewhere classified, thoracic region, initial encounter for fracture; Z87.891 Personal history of nicotine dependence; M54.16 Radiculopathy, lumbar region; F44.4 Conversion disorder with motor symptom or deficit; N17.9 Acute kidney failure, unspecified; J44.9 Chronic obstructive pulmonary disease, unspecified; F32.9 Major depressive disorder, single episode, unspecified; R91.1 Solitary pulmonary nodule; K59.00 Constipation, unspecified

== ENCOUNTER 2018-10-04 09:57 | Outpatient (CLI) | payer MEDICARE, OTHER ==
[~2018-10-04] VITALS: Ht 157.5 cm; Wt 73.6 kg
[~2018-10-04 09:57] MED LIST changes: +ALBUTEROL SULF8.5 GM INH; +BUSPAR5 MG PO; +HYDROCODON-ACE1 EAC7 PO; +HYTRIN5 MG PO; +LEVEMIR IN100 UNITS/ SC; +MULTI-DAY VITAM1 TAB PO; +NORVASC5 MG PO; +ULTRAM50 MG PO; +VOLTAREN100 GM TOPICAL; +ZANAFLEX4 MG PO
[2018-10-04 11:39] VITALS: Ht 157.5 cm; Wt 73.6 kg
[2018-10-04] MEDS ORDERED: PLAVIX75 MG PO (11:54)
[2018-10-04 12:20] LABS: BASOPHILS 0.3 % (0-2); EOSINOPHILS 0.6 % (0-7); IMMATURE GRANULOCYTES 1.8 % (0-5); LYMPHOCYTES 16.6 % (15-50); MCH 29.9 pg (26.0-34.0); MCHC 34.2 g/dL (31.0-37.0); MCV 87.4 fL (80.0-100.0); MEAN PLATELET VOLUME 10.5 fL (7.4-10.4); MONOCYTES 13.6 % (2-11); NEUTROPHILS 67.1 % (40-80); RBC 4.35 10x6/uL (4.00-5.40); RDW 14.1 % (11.5-14.5); WBC 3.4 10x3/uL (4.8-10.8)
[2018-10-04 12:25] LABS: PLATELET COUNT 105 10x3/uL (130-400)
[2018-10-04 12:35] LABS: ALBUMIN 2.9 g/dL (3.4-5.0); BILIRUBIN - TOTAL 0.59 mg/dL (0.2-1.3); CALCIUM 8.9 mg/dL (8.5-10.1); CARBON DIOXIDE 31.2 mmol/L (21.0-32.0); POTASSIUM - SERUM 4.2 mmol/L (3.5-5.1); PROTEIN - SERUM 6.2 g/dL (6.4-8.2)
[2018-10-04 13:02] LABS: APTT 29.8 SECONDS (22.8-39.4); INR 1.02 (0.85-1.17); PROTIME 12.9 SECONDS (11.6-15.0)
== END 2018-10-04 15:40 | disposition home or self-care (01) ==
LOC: D.RAD 09:57 → D.SP 09:57 → D.RAD 13:00 → D.SP 15:40
PROVIDERS: Radiology Diagnostic Radiology; ATTEND Neurological Surgery
DX: M48.061 Spinal stenosis, lumbar region without neurogenic claudication (principal); M54.16 Radiculopathy, lumbar region; Z01.812 Encounter for preprocedural laboratory examination

== ENCOUNTER → 2019-09-06 13:24 | Outpatient (CLI) | payer MEDICARE, OTHER ==
[2018-10-04 11:39] VITALS: BMI 29.7
== END | disposition home or self-care (01) ==
LOC: D.HCCECHO 13:24
PROVIDERS: ATTEND Internal Medicine Cardiovascular Disease
DX: I34.0 Nonrheumatic mitral (valve) insufficiency (principal)

== ENCOUNTER → 2019-11-27 07:22 | Outpatient (CLI) | payer MEDICARE, OTHER ==
[2018-10-04 11:39] VITALS: BMI 29.7
== END | disposition home or self-care (01) ==
LOC: D.RAD 07:22
PROVIDERS: ATTEND Internal Medicine Gastroenterology
DX: R12 Heartburn (principal)